=== PATIENT | female | born 1985 | race Caucasian/White ===

== ENCOUNTER 2019-07-06 03:50 | Observation (INO) | payer MEDICARE, MEDICAID ==
[~2019-07-06] VITALS: Ht 172.7 cm; Wt 120.0 kg
[~2019-07-06 03:50] MED LIST: ACET-2119 PO; ONDA4TAB6 PO; PHEN100C4 PO
[2019-07-06] MEDS ORDERED: LEVO50TA8 PO (04:15)
[2019-07-06] MEDS ORDERED: PHEN100C12 PO ×2 (04:15→14:01)
[2019-07-06] MEDS ORDERED: acetaminophen 325mg tablet PO ONE (04:20)
[2019-07-06] MEDS ORDERED: mag hydrox/Alum hydrox/simeth 30ml oral suspension PO PRN (04:25)
[2019-07-06] MEDS ORDERED: magnesium hydroxide 30ml (MOM) UD suspension PO PRN (04:25)
[2019-07-06] MEDS ORDERED: potassium Cl 20 mEq SR tablet PO PRN ×2 (04:25)
[2019-07-06] MEDS ORDERED: potassium CL 10mEq/100ml bag 100 ML IV PRN ×2 (04:25)
[2019-07-06] MEDS ORDERED: magnesium Cl slow-release 64mg tablet PO PRN (04:25)
[2019-07-06] MEDS ORDERED: magnesium 2GM in 50ml NS 50 ML IV PRN (04:25)
[2019-07-06] MEDS ORDERED: acetaminophen 325mg tablet PO PRN ×2 (04:25)
[2019-07-06] MEDS ORDERED: magnesium 4gm in 100ml NS 100 ML IV PRN (04:25)
[2019-07-06] MEDS ORDERED: ondansetron/PF 4mg/2ml inj IV PRN (04:25)
[2019-07-06 06:05] VITALS: BP 105/57
--- NOTE | 2019-07-06 06:35 | NUR ---
RC'D VERBAL REPORT FROM EMERGENCY DEPT RNJOHN AND ASSUMED CARE OF PATIENT UPON HER ARRIVAL TO THE FLOOR VIA GURNEY AT 0550. PATIENT AMBULATED TO THE BED FROM THE HALLWAY WITH STANDBY ASSIST AND ORIENTED TO ROOM AND CALL LIGHT SYSTEM. VITAL SIGNS TAKEN, MRSA SWAB OBTAINED AND TAKEN TO LAB. C/O AREVALO, WAS MEDICATED FOR THIS IN ED, GAVE A TOWEL TO HER TO PLACE OVER HER EYES. REPORT GIVEN TO CHARLI BECKER
--- NOTE | 2019-07-06 06:42 | NUR ---
Patient in room ORTHO 4009. I have received report from Sabrina BECKER and had the opportunity to ask questions and assume patient care.
[2019-07-06 06:44] LABS: BASOPHILS % (AUTO) 0.4 % (0-1); EOSINOPHILS # (AUTO) 0.1 X10'3 (0-0.9); HEMATOCRIT 35.6 % (35.0-45.0); HEMOGLOBIN 11.8 g/dl (12.0-16.0); LYMPHOCYTES # (AUTO) 3.3 X10'3 (1.1-4.8); LYMPHOCYTES % (AUTO) 31.9 % (21-51); MEAN CORPUSCULAR HEMOGLOBIN 27.7 PG (27.0-31.0); MEAN CORPUSCULAR HGB CONC 33.3 g/dL (33.0-36.5); MEAN CORPUSCULAR VOLUME 83.3 FL (78-98); MEAN PLATELET VOLUME 7.7 FL (7.4-10.4); MONOCYTES # (AUTO) 0.8 X10'3 (0-0.9); NEUTROPHILS # (AUTO) 6.1 X10'3 (1.8-7.7); NEUTROPHILS % (AUTO) 58.7 % (42-75); PLATELET COUNT 316 X10'3 (140-440); RED BLOOD COUNT 4.27 X10'6 (4.20-5.60); RED CELL DISTRIBUTION WIDTH 15.3 % (11.5-14.5); WHITE BLOOD COUNT 10.3 X10'3 (4.5-11.0)
[2019-07-06] MEDS ORDERED: levoTHYROXINE 25mcg tablet PO SCH (07:00)
[2019-07-06 07:11] LABS: ALBUMIN 3.6 G/DL (3.4-5.0); ANION GAP 9 (8-16); BLOOD UREA NITROGEN 15 MG/DL (7-18); BUN/CREATININE RATIO 25.4 (6.6-38.0); CALCIUM 8.8 MG/DL (8.5-10.1); CHLORIDE 108 MMOL/L (99-107); CHOL/HDL RATIO 4.5 (0.00-4.99); CHOLESTEROL 175 MG/DL (0-200); CREATININE 0.59 MG/DL (0.40-0.90); GLUCOSE 87 MG/DL (70-104); HDL CHOLESTEROL 39 MG/DL (35-60); LDL CHOLESTEROL 126 MG/DL (50-100); PHENYTOIN (DILANTIN) 0.7 UG/ML (10.0-20.0); POTASSIUM 3.2 MMOL/L (3.5-5.1); SODIUM 144 MMOL/L (135-145); TOTAL CARBON DIOXIDE 27.1 MMOL/L (24-32); TRIGLYCERIDES 60 MG/DL (20-135); eGFR > 90 ML/MIN
[2019-07-06] MEDS ORDERED: enoxaparin 40mg/0.4ml syringe SQ SCH (08:00)
[2019-07-06] MEDS ORDERED: K and/or MAG REPLACEMENT MC SCH (08:00)
[2019-07-06] MEDS ORDERED: atorvastatin 20mg tablet PO SCH (08:00)
[2019-07-06] MEDS ORDERED: aspirin 325mg tablet, delayed-release (Ecotrin) PO SCH (08:00)
[2019-07-06] MEDS ORDERED: LORazepam 2 mg/ml vial IV ONE (09:25)
[2019-07-06 10:00] VITALS: BP 109/58
--- NOTE | 2019-07-06 13:37 | NUR ---
PAGER ID: [phone] MESSAGE: RE: [id number] Yanet King. Patient very anxious wanting to leave. MRI neg, Echo 60-65%. EEG pending. PETTIBONE [id number]
[2019-07-06] MEDS ORDERED: phenytoin sod inj 1,000 MG in normal saline 100ml IV soln 80 ML IV ONE (13:40)
[2019-07-06 14:00] VITALS: BP 113/73
[2019-07-06] MEDS ORDERED: ATOR20TA66 PO (14:01)
[2019-07-06] MEDS ORDERED: FLU VACC QS2019-20(6MOS UP)/PF 60 MCG/0.5 ML SYRINGE IMVAC ONE (14:20)
[2019-07-06] MEDS ORDERED: FLU VACC QS2019-20 36MOS UP/PF 60 MCG/0.5 ML SYRINGE IMVAC ONE (14:45)
--- NOTE | 2019-07-06 15:30 | NUR ---
Discontinued PIV, cannula intact.
--- NOTE | 2019-07-06 16:11 | NUR ---
Patient stable for discharge home today. All belongings sent home with patient and all discharge instructions given to patient. Patient instructed to follow up within neurologist and PCP within 1-2 weeks
[2019-07-06] MEDS ORDERED: phenytoin sod ER 100mg capsule PO SCH (21:00)
--- NOTE | 2019-07-08 14:50 | NUR ---
Case Management DC follow-up: LM on pt VM r/t DC follow-up
== END 2019-07-06 15:50 | disposition home or self-care (01) ==
LOC: ER 03:51 → ED HOLD 04:22 → ORTHO 4S 05:54
PROVIDERS: ADMIT Hospitalist; ATTEND Hospitalist
DX: I69.354 Hemiplegia and hemiparesis following cerebral infarction affecting left non-dominant side (principal); E87.6 Hypokalemia; E78.5 Hyperlipidemia, unspecified; R56.9 Unspecified convulsions; Z79.899 Other long term (current) drug therapy; Z23 Encounter for immunization; Z88.0 Allergy status to penicillin; Z88.6 Allergy status to analgesic agent; Z91.048 Other nonmedicinal substance allergy status
CPT/HCPCS: 36415; 70544; 70551; 80048; 80061; 80185; 84443; 85025; 87081; 93306; 95816; 96365; 96372; 96375; 99284; G0008; G0378; J1165; J2060; J1650; Q2037

== ENCOUNTER 2020-06-18 21:14 | Emergency (ER) | payer MEDICAID, MEDICARE ==
[~2020-06-18] VITALS: Ht 172.7 cm; Wt 113.6 kg
[~2020-06-18 21:14] MED LIST changes: -ACET-2119 PO; +ATOR20TA66 PO; +LEVO50TA8 PO; -ONDA4TAB6 PO; +PHEN100C12 PO; -PHEN100C4 PO
[2020-06-18 22:22] LABS: URINE HCG NEGATIVE (NEG)
[2020-06-18 22:57] LABS: CLARITY,URINE SLIGHTLY CLOUDY (Clear); COLOR,URINE YELLOW (Yellow); GLUCOSE, URINE NEGATIVE (Neg); KETONES,URINE NEGATIVE (Neg); LEUKOCYTE ESTERASE ,URINE SMALL (Neg); NITRITES, URINE NEGATIVE (Neg); OCCULT BLOOD,URINE LARGE (Neg); PH,URINE 5.5 (4.8-8.0); PROTEIN,URINE NEGATIVE (Neg); UROBILINOGEN,URINE 0.2 E.U/dL (0.2-1.0)
[2020-06-18] MEDS ORDERED: morphine 4 MG/ML inj SYRINge IV ONE (23:00)
[2020-06-18] MEDS ORDERED: ondansetron/PF 4mg/2ml inj IV ONE (23:00)
[2020-06-18 23:02] LABS: UA COLLECTION TYPE CLN CATCH MIDSTREAM
[2020-06-18 23:03] LABS: BACTERIA,URINE 2+ /HPF (Neg); SQUAMOUS EPITHELIAL CELL,UR FEW /LPF (FEW)
[2020-06-18 23:27] LABS: BASOPHILS % (AUTO) 0.4 % (0-1); EOSINOPHILS # (AUTO) 0.1 X10'3 (0-0.9); EOSINOPHILS % (AUTO) 0.8 % (0-6); HEMATOCRIT 37.3 % (35.0-45.0); LYMPHOCYTES # (AUTO) 3.4 X10'3 (1.1-4.8); LYMPHOCYTES % (AUTO) 30.4 % (21-51); MEAN CORPUSCULAR HEMOGLOBIN 26.7 PG (27.0-31.0); MEAN CORPUSCULAR HGB CONC 32.2 g/dL (33.0-36.5); MEAN CORPUSCULAR VOLUME 82.8 FL (78-98); MEAN PLATELET VOLUME 7.5 FL (7.4-10.4); MONOCYTES # (AUTO) 0.9 X10'3 (0-0.9); NEUTROPHILS # (AUTO) 6.8 X10'3 (1.8-7.7); NEUTROPHILS % (AUTO) 60.4 % (42-75); PLATELET COUNT 330 X10'3 (140-440); RED BLOOD COUNT 4.51 X10'6 (4.20-5.60); RED CELL DISTRIBUTION WIDTH 16.5 % (11.5-14.5); WHITE BLOOD COUNT 11.2 X10'3 (4.5-11.0)
[2020-06-18 23:43] LABS: ALANINE AMINOTRANSFERASE 22 U/L (12-78); ALBUMIN 3.7 G/DL (3.4-5.0); ALBUMIN/GLOBULIN RATIO 0.9 (1.1-1.5); ALKALINE PHOSPHATASE 95 IU/L (46-116); ANION GAP 10 (8-16); ASPARTATE AMINO TRANSFERASE 11 U/L (10-37); BILIRUBIN,TOTAL 0.1 MG/DL (0.1-1.0); BLOOD UREA NITROGEN 15 MG/DL (7-18); BUN/CREATININE RATIO 20.3 (6.6-38.0); CALCIUM 9.3 MG/DL (8.5-10.1); CHLORIDE 107 MMOL/L (99-107); CREATININE 0.74 MG/DL (0.40-0.90); GLUCOSE 95 MG/DL (70-104); SODIUM 141 MMOL/L (135-145); TOTAL CARBON DIOXIDE 24.4 MMOL/L (24-32); TOTAL PROTEIN 7.8 G/DL (6.4-8.2); eGFR 90 ML/MIN
[2020-06-18 23:45] VITALS: BP 115/66
[2020-06-19] MEDS ORDERED: SULF1TAB49 PO (00:20)
[2020-06-19] MEDS ORDERED: acetaminophen 325mg tablet PO ONE (00:35)
== END 2020-06-19 01:15 | disposition home or self-care (01) ==
LOC: ER 21:14
DX: N39.0 Urinary tract infection, site not specified (principal); I63.9 Cerebral infarction, unspecified; Z88.0 Allergy status to penicillin; Z88.6 Allergy status to analgesic agent; Z88.8 Allergy status to other drugs, medicaments and biological substances; Z79.899 Other long term (current) drug therapy
CPT/HCPCS: 36415; 74176; 76856; 80053; 81001; 81025; 85025; 85610; 87088; 93976; 96374; 96375; 99285; J2270; J2405

== ENCOUNTER 2020-06-29 22:09 | Emergency (ER) | payer MEDICARE, MEDICAID ==
[~2020-06-29] VITALS: Ht 172.7 cm; Wt 109.1 kg
[2020-06-29] MEDS ORDERED: normal saline 1000ML IV soln IVB ONE ×2 (22:55→23:05)
[2020-06-29] MEDS ORDERED: ondansetron/PF 4mg/2ml inj IV ONE (23:05)
[2020-06-29] MEDS ORDERED: levoFLOXACIN-Levaquin 750MG/D5 150 ML IV ONE (23:05)
[2020-06-29] MEDS ORDERED: morphine 4 MG/ML inj SYRINge IV ONE (23:05)
--- NOTE | 2020-06-30 00:08 | NUR ---
PT IS DIFFICULT IV START - MD AWARE - LABS/IV DELAYED AT THIS TIME. PER MD OK TO GO TO CT SCAN AND THEN REASSESS THE NEED FOR LABS/LINE
[2020-06-30 01:30] LABS: CLARITY,URINE CLEAR (Clear); COLOR,URINE YELLOW (Yellow); GLUCOSE, URINE NEGATIVE (Neg); KETONES,URINE NEGATIVE (Neg); LEUKOCYTE ESTERASE ,URINE TRACE (Neg); NITRITES, URINE NEGATIVE (Neg); OCCULT BLOOD,URINE NEGATIVE (Neg); PH,URINE 6.5 (4.8-8.0); PROTEIN,URINE NEGATIVE (Neg); UROBILINOGEN,URINE 0.2 E.U/dL (0.2-1.0)
[2020-06-30 01:32] LABS: UA COLLECTION TYPE STRAIGHT CATH; URINE HCG NEGATIVE (NEG)
[2020-06-30 02:02] LABS: BACTERIA,URINE FEW /HPF (Neg); RBC,URINE 0-2 /HPF (0-2); SQUAMOUS EPITHELIAL CELL,UR NONE SEEN /LPF (FEW); WBC,URINE 0-4 /HPF (0-4)
[2020-06-30] MEDS ORDERED: ACET-2119 PO (02:22)
[2020-06-30 02:55] VITALS: BP 122/87
== END 2020-06-30 02:57 | disposition home or self-care (01) ==
LOC: ER 22:10
DX: R10.31 Right lower quadrant pain (principal); Z88.0 Allergy status to penicillin; Z88.6 Allergy status to analgesic agent; Z88.8 Allergy status to other drugs, medicaments and biological substances; Z79.899 Other long term (current) drug therapy; Z86.73 Personal history of transient ischemic attack (TIA), and cerebral infarction without residual deficits; Z87.448 Personal history of other diseases of urinary system; Z90.49 Acquired absence of other specified parts of digestive tract
CPT/HCPCS: 74176; 76830; 76856; 81001; 81025; 87088; 93976; 99285

== ENCOUNTER 2020-08-22 17:41 | Emergency (ER) | payer MEDICARE, MEDICAID ==
[~2020-08-22] VITALS: Ht 172.7 cm; Wt 109.1 kg
[2020-08-22] MEDS ORDERED: normal saline 1000ML IV soln IVB ONE (18:45)
[2020-08-22] MEDS ORDERED: famotidine 20mg tablet PO ONE (18:45)
[2020-08-22] MEDS ORDERED: mag hydrox/Alum hydrox/simeth 30ml oral suspension PO ONE (18:45)
[2020-08-22] MEDS ORDERED: LIDOcaine Viscous 15ml cup MM ONE (18:45)
[2020-08-22 18:59] LABS: BASOPHILS % (AUTO) 0.3 % (0-1); EOSINOPHILS % (AUTO) 0.1 % (0-6); HEMATOCRIT 37.6 % (35.0-45.0); HEMOGLOBIN 12.2 g/dl (12.0-16.0); LYMPHOCYTES % (AUTO) 8.6 % (21-51); MEAN CORPUSCULAR HEMOGLOBIN 27.3 PG (27.0-31.0); MEAN CORPUSCULAR HGB CONC 32.5 g/dL (33.0-36.5); MEAN CORPUSCULAR VOLUME 84.1 FL (78-98); MEAN PLATELET VOLUME 7.9 FL (7.4-10.4); MONOCYTES # (AUTO) 0.2 X10'3 (0-0.9); MONOCYTES % (AUTO) 1.5 % (2-12); NEUTROPHILS % (AUTO) 89.5 % (42-75); PLATELET COUNT 350 X10'3 (140-440); RED BLOOD COUNT 4.47 X10'6 (4.20-5.60); RED CELL DISTRIBUTION WIDTH 16.2 % (11.5-14.5); WHITE BLOOD COUNT 11.1 X10'3 (4.5-11.0)
[2020-08-22 19:07] LABS: ALANINE AMINOTRANSFERASE 25 U/L (12-78); ALBUMIN 3.6 G/DL (3.4-5.0); ALBUMIN/GLOBULIN RATIO 0.8 (1.1-1.5); ALKALINE PHOSPHATASE 93 IU/L (46-116); ANION GAP 15 (8-16); ASPARTATE AMINO TRANSFERASE 15 U/L (10-37); BILIRUBIN,TOTAL 0.1 MG/DL (0.1-1.0); BLOOD UREA NITROGEN 14 MG/DL (7-18); BUN/CREATININE RATIO 17.5 (6.6-38.0); CHLORIDE 107 MMOL/L (99-107); GLUCOSE 249 MG/DL (70-104); LIPASE 89 U/L (73-393); POTASSIUM 3.6 MMOL/L (3.5-5.1); SODIUM 141 MMOL/L (135-145); TOTAL CARBON DIOXIDE 18.7 MMOL/L (24-32); eGFR 83 ML/MIN
[2020-08-22 19:46] LABS: BETA HCG,QUANTITATIVE < 1.0 mIU/ml
[2020-08-22 20:43] LABS: URINE HCG NEGATIVE (NEG)
[2020-08-22 21:02] LABS: CLARITY,URINE SLIGHTLY CLOUDY (Clear); COLOR,URINE YELLOW (Yellow); GLUCOSE, URINE 100 mg/dl (Neg); KETONES,URINE NEGATIVE (Neg); LEUKOCYTE ESTERASE ,URINE NEGATIVE (Neg); NITRITES, URINE NEGATIVE (Neg); OCCULT BLOOD,URINE NEGATIVE (Neg); PH,URINE 6.5 (4.8-8.0); PROTEIN,URINE NEGATIVE (Neg); UA COLLECTION TYPE CLN CATCH MIDSTREAM; UROBILINOGEN,URINE 0.2 E.U/dL (0.2-1.0)
[2020-08-22 21:23] LABS: AMORPHOUS URATES 2+; MUCUS STRANDS MANY /LPF (Neg); SQUAMOUS EPITHELIAL CELL,UR MANY /LPF (FEW)
[2020-08-22 21:24] LABS: BACTERIA,URINE FEW /HPF (Neg); RBC,URINE NONE SEEN /HPF (0-2); WBC,URINE 0-4 /HPF (0-4)
[2020-08-22] MEDS ORDERED: FAMO20TA79 PO (21:54)
[2020-08-22 22:00] VITALS: BP 142/85
== END 2020-08-22 22:05 | disposition home or self-care (01) ==
LOC: ER 17:41
DX: O28.0 Abnormal hematological finding on antenatal screening of mother (principal); R73.9 Hyperglycemia, unspecified; O26.891 Other specified pregnancy related conditions, first trimester; R10.9 Unspecified abdominal pain; O21.9 Vomiting of pregnancy, unspecified; O20.9 Hemorrhage in early pregnancy, unspecified; O99.351 Diseases of the nervous system complicating pregnancy, first trimester; G40.909 Epilepsy, unspecified, not intractable, without status epilepticus; Z3A.08 8 weeks gestation of pregnancy; Z86.73 Personal history of transient ischemic attack (TIA), and cerebral infarction without residual deficits; Z87.440 Personal history of urinary (tract) infections; Z90.49 Acquired absence of other specified parts of digestive tract; Z88.0 Allergy status to penicillin; Z91.041 Radiographic dye allergy status; Z88.8 Allergy status to other drugs, medicaments and biological substances; Z79.899 Other long term (current) drug therapy; F80.9 Developmental disorder of speech and language, unspecified
CPT/HCPCS: 36415; 76700; 80053; 81001; 81025; 83690; 84702; 85025; 96360; 96361; 99284; J7030